=== PATIENT | female | born 1955 | race Caucasian/White ===

== ENCOUNTER 2016-07-06 21:01 | Emergency (ER) | payer BC ==
[~2016-07-06] VITALS: Ht 170.2 cm; Wt 82.4 kg
[~2016-07-06 21:01] MED LIST: ALBUAER19 INH; ASPI81TA21 PO; ATEN-173 PO; CALCIUM,MAG,ZINC PO; CHOL100027 PO; CRANPOW PO; FLNIN NAE; MULT-506 PO; OMEG10007 PO; PANT40TA PO; VITBC PO
[2016-07-06 21:07] VITALS: TEMP 36.8; Ht 170.2 cm; Wt 82.4 kg
[2016-07-06] MEDS ORDERED: CZR50 PO (21:23)
[2016-07-06] MEDS ORDERED: CHLO1TAB47 PO (21:23)
[2016-07-06] MEDS ORDERED: SNG10 PO (21:23)
[2016-07-06] MEDS ORDERED: RANI150T2 PO (21:23)
[2016-07-06] MEDS ORDERED: SODIUM CHLORIDE 0.9% 1000ML 1,000 ML IV STA (21:55)
[2016-07-06] MEDS ORDERED: GI COCKTAIL PO ONE (22:00)
[2016-07-06] MEDS ORDERED: LIDOCAINE HCL 2% VISC SOLN 20 ML UDC ONE (22:06)
[2016-07-06] MEDS ORDERED: ALUMINUM/MAGNESIUM SUSP 30 ML UDC ONE (22:06)
--- NOTE | 2016-07-06 22:10 | EMERGENCY ROOM VISIT NOTE ---
History First contact with patient: 21:36 Chief Complaint: SHORTNESS OF BREATH Stated Complaint: SOB,COUGH,HEAD CONGESTION Nursing Triage Summary: Patient reports that she has had sinus pain and congestion since last Saturday. Patient was seen by PCP and told to wait atleast 7-10 days. Patient asked if she is feeling SOB, she states "I don't know. I just feel like sometimes I can't get a deep breath." History of Present Illness The patient is a 60 year old female who presents to the Emergency Department by private vehicle for evaluation of her cough, nasal congestion, gastritis, and shortness of breath. She reports that 2 weeks ago she had the "stomach bug" with associated vomiting. The symptoms had subsided and she followed up with her primary care provider for persistent complaints of upper abdominal discomfort. She was placed on Zantac twice daily. This was earlier this week. Shortly after the visit she developed nasal congestion and jaw as well as pain to the back of head. The symptoms have persisted. She contacted her primary care provider's office and asked for an antibiotic. They did not feel was necessary at this point. She's had persistent symptoms which has now progressed to a cough as well as shortness of breath at rest. She also complains of tingling in the bilateral hands as well as face when she has the sensation of not being able to breathe secondary to nasal congestion. The patient complains of minimal discomfort rating her pain a 1/10. She denies any fevers, chills, dizziness, lightheadedness, blurry vision, double vision, slurred speech, facial droop, unilateral weakness/numbness, neck stiffness, palpitations, hemoptysis, or abdominal pain. She denies any recent long distance travel, family history of blood clots/bleeding disorders, use of exogenous female hormone, or smoking history. 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 She does not take antibiotics prophylactically for infections. Review of Systems A complete 10-point Review of Systems was discussed with the patient, with pertinent positives and negatives listed in the History of Present Illness. All remaining Review of Systems questions can be considered negative unless otherwise specified. 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 (3) Hypertension Surgical Problems: (1) History of abdominal surgery (2) History of tonsillectomy Family History FH: COPD (chronic obstructive pulmonary disease) FH: HTN (hypertension) FH: cancer FH: seizures Kidney stones Social History Smoking Status: Never Smoker Smokeless Tobacco Use: No Alcohol Use: none Drug Use: none Marital Status: Occupation Status: employed Current/Historical Medications Scheduled Amoxicillin (Amoxil), 500 MG PO TID Aspirin Enteric Coated (Ecotrin Or Generic), 81 MG PO DAILY Chlorpheniramine-Phenylephrine (Brandee-[place] Plus Cold), 2 TAB PO DIRECTED Cholecalciferol (Vitamin D 1000 Unit), 1,000 INTER.UNIT PO DAILY Fish Oil ([place]-3), 1 CAP PO DAILY Losartan Potassium (Losartan Potassium), 50 MG PO QAM Montelukast Sod (Montelukast Sodium), 10 MG PO QPM Multivitamin (Multivitamin), 1 TAB PO DAILY Ranitidine HCl (Ranitidine HCl), 150 MG PO BID Vitamin B Complex (Vitamin B Complex), 1 TAB PO DAILY Scheduled PRN Albuterol Inhaler (Ventolin Inhaler), 2 PUFFS INH QID PRN for CONGESTION Allergies Coded Allergies: Gabapentin (Verified Adverse Reaction, Mild, FEELS HIGH, 07/06/16) Prednisone (Verified Adverse Reaction, Mild, FEELS HIGH, 07/06/16) Pregabalin (Verified Adverse Reaction, Mild, FEELS HIGH, 07/06/16) Sulfa Drugs (Verified Adverse Reaction, Mild, UPSET STOMACH, 07/06/16) Sulfamethoxazole (Verified Adverse Reaction, Mild, UPSET STOMACH, 07/06/16) Trimethoprim (Verified Adverse Reaction, Mild, UPSET STOMACH, 07/06/16) Physical Exam Vital Signs Date Time Temp Pulse Resp B/P Pulse Ox O2 Delivery O2 Flow Rate FiO2 07/07/16 00:13 77 20 172/74 98 07/06/16 22:48 100 Room Air 07/06/16 22:41 62 07/06/16 22:37 62 12 180/87 100 Room Air 07/06/16 21:29 Room Air 07/06/16 21:07 36.8 77 20 192/95 97 Room Air Pain Rating (0-10): 1 Physical Exam VITAL SIGNS - Vital signs and nursing notes were reviewed. GENERAL - Well nourished, well developed 60-year-old female in no acute distress. Pt communicates well with provider and answers questions appropriately. SKIN - Without rash. HEAD - NC/AT with no obvious deformities. EYES - PERRL with EOMI bilaterally. Sclera without injection. Palpebral conjunctiva pink and moist. EARS - No deformities of external structures noted on gross examination bilaterally. No pain elicited with palpation of the tragus bilaterally. External auditory canals without discharge or otorrhea. Tympanic membranes pearly [place] without retraction or bulging. No fluid or purulent material visualized behind the TM. Handle of malleus, umbo, cone of light, pars tensa/ flaccid all easily visualized. NOSE - Midline and without cyanosis. No purulent drainage noted. Nasal mucosa with mucus discharge. TTP to the RIGHT sided maxillary sinus. MOUTH/OROPHARYNX - Without perioral cyanosis. Buccal mucosa pink and moist and without leukoplakia. Tongue midline with equal elevation of palate bilaterally. No tonsillar hypertrophy, erythema, or exudates noted. Good dentition noted. NECK - Neck with FROM. Supple to palpation. No lymphadenopathy noted. No nuchal rigidity. LUNGS - Chest wall symmetric without accessory muscle use, intercostals retractions, or central cyanosis. Normal vesicular breath sounds CTA B/L. No wheezes, rales, or rhonchi appreciated. CARDIAC - RRR with S1/S2. No murmur, rubs, or gallops appreciated. ABDOMEN - Abdominal contour flat without pulsations or visible masses. BS normoactive all four quadrants. No tenderness, palpable masses, hepatosplenomegaly, or ascites noted. Medical Decision & Procedures ER Provider Diagnostic Interpretation: Radiological imaging and reports were reviewed by myself. Radiologist's Interpretation as follows: CHEST ONE VIEW PORTABLE CLINICAL HISTORY: cough dyspnea COMPARISON STUDY: 03/23/2014 FINDINGS: The bones soft tissues and hemidiaphragms are normal. The cardiomediastinal silhouette is normal. The lungs are clear. The pulmonary vasculature is normal. IMPRESSION: Negative chest. Laboratory Results 07/06/16 22:27 Red Blood Count 4.45, Mean Corpuscular Volume 90.3, Mean Corpuscular Hemoglobin 31.2, Mean Corpuscular Hemoglobin Concent 34.6, Mean Platelet Volume 10.7, Neutrophils (%) (Auto) 43.2, Lymphocytes (%) (Auto) 35.9, Monocytes (%) (Auto) 12.4, Eosinophils (%) (Auto) 7.8, Basophils (%) (Auto) 0.5, Neutrophils # (Auto ) 4.41, Lymphocytes # (Auto) 3.67, Monocytes # (Auto) 1.27, Eosinophils # (Auto ) 0.80, Basophils # (Auto) 0.05 07/06/16 22:27 Test 07/06/16 00:00 07/06/16 22:27 07/06/16 22:59 Influenza Type A Antigen Neg for Influ A (NEG) Influenza Type B Antigen Neg for Influ B (NEG) White Blood Count 10.22 K/uL (4.8-10.8) Red Blood Count 4.45 M/uL (4.2-5.4) Hemoglobin 13.9 g/dL (12.0-16.0) Hematocrit 40.2 % (37-47) Mean Corpuscular Volume 90.3 fL (80-100) Mean Corpuscular Hemoglobin 31.2 pg (25-34) Mean Corpuscular Hemoglobin Concent 34.6 g/dl (32-36) Platelet Count 340 K/uL (130-400) Mean Platelet Volume 10.7 fL (7.4-10.4) Neutrophils (%) (Auto) 43.2 % Lymphocytes (%) (Auto) 35.9 % Monocytes (%) (Auto) 12.4 % Eosinophils (%) (Auto) 7.8 % Basophils (%) (Auto) 0.5 % Neutrophils # (Auto) 4.41 K/uL (1.4-6.5) Lymphocytes # (Auto) 3.67 K/uL (1.2-3.4) Monocytes # (Auto) 1.27 K/uL (0.11-0.59) Eosinophils # (Auto) 0.80 K/uL (0-0.5) Basophils # (Auto) 0.05 K/uL (0-0.2) RDW Standard Deviation 45.8 fL (36.4-46.3) RDW Coefficient of Variation 13.9 % (11.5-14.5) Immature Granulocyte % (Auto) 0.2 % Immature Granulocyte # (Auto) 0.02 K/uL (0.00-0.02) Prothrombin Time 10.0 SECONDS (9.0-12.0) Prothromb Time International Ratio 0.9 (0.9-1.1) Activated Partial Thromboplast Time 26.3 SECONDS (21.0-31.0) Partial Thromboplastin Ratio 1.0 Anion Gap 8.0 mmol/L (3-11) Est Creatinine Clear Calc Drug Dose 92.0 ml/min Estimated GFR () 107.6 Estimated GFR (Non- 92.9 BUN/Creatinine Ratio 20.0 (10-20) Calcium Level 9.1 mg/dl (8.5-10.1) Magnesium Level 2.2 mg/dl (1.8-2.4) Total Bilirubin 0.2 mg/dl (0.2-1) Aspartate Amino Transf (AST/SGOT) 28 U/L (15-37) Alanine Aminotransferase (ALT/SGPT) 37 U/L (12-78) Alkaline Phosphatase 82 U/L (45-117) Total Creatine Kinase 69 U/L (26-192) Creatine Kinase MB 1.1 ng/ml (0.5-3.6) Creatine Kinase MB Ratio 1.6 (0-3.0) Total Protein 7.8 gm/dl (6.4-8.2) Albumin 3.7 gm/dl (3.4-5.0) Globulin 4.1 gm/dl (2.5-4.0) Albumin/Globulin Ratio 0.9 (0.9-2) Lipase 195 U/L (73-393) Bedside Troponin I 0.000 ng/ml (0-0.045) Medications Administered Medications (Trade) Dose Ordered Sig/Andie Route Start Time Stop Time Status Last Admin Dose Admin Sodium Chloride (Nss 1000ml) 1,000 ml @ 200 mls/hr Q5H STAT IV 07/06/16 21:55 07/07/16 00:51 DC 07/06/16 22:29 200 MLS/HR Lidocaine HCl (Viscous Lidocaine 2% Soln) 20 ml STK-MED ONCE .ROUTE 07/06/16 22:06 07/06/16 22:09 DC 07/06/16 22:31 20 ML Al Hydroxide/Mg Hydroxide (Maalox Susp) 30 ml STK-MED ONCE .ROUTE 07/06/16 22:06 07/06/16 22:09 DC 07/06/16 22:31 30 ML Albuterol/ Ipratropium (Duoneb) 3 ml STK-MED ONCE .ROUTE 07/06/16 22:24 07/06/16 22:27 DC 07/06/16 22:32 3 ML Amoxicillin (Amoxil Cap) 500 mg NOW STAT PO 07/06/16 23:35 07/06/16 23:37 DC 07/06/16 23:52 500 MG Amoxicillin (Amoxil 250MG Home Pack) 1 homepack UD ONCE PO 07/06/16 23:45 07/06/16 23:46 DC 07/06/16 23:52 1 HOMEPACK Albuterol (Ventolin Hfa Inhaler) 2 puffs ONE STAT INH 07/06/16 23:35 07/06/16 23:37 DC 07/06/16 23:52 2 PUFFS Procedure Patient was placed on the compliance monitor and monitored throughout the entire extent of their stay. In addition, the patient's pulse oximetry was monitored throughout the entire stay. Any abnormalities or aberrancies were addressed appropriately. ECG Indication: SOB/dyspnea Rate (beats per minute): 63 Rhythm: normal sinus Findings: no acute ischemic change, no ectopy Change: no significant change (from 03/23/2014.) ED Course Patient was seen and evaluated by myself. Labs were drawn, saline lock in place. The patient was hydrated with normal saline at a rate of 200 mL per hour. EKG and chest x-rays were obtained. The patient was treated with GI cocktail and a DuoNeb treatment. Laboratory results demonstrate no acute leukocytosis, worrisome anemia, or bandemia. The patient has no significant electrolyte abnormalities. Cardiac enzymes are negative. Troponin is negative. Laboratory results and imaging studies were reviewed with the patient who acknowledges understanding. The patient received amoxicillin for her sinusitis. The patient was educated on worrisome symptoms for return visit to the emergency department. Patient discharged home afebrile and in good condition. Medical Decision Given the patient's presentation and stated complaints, I did elect to perform the above-mentioned workup. The patient presents today with upper respiratory symptoms, nasal congestion, and subjective shortness of breath. She is not hypoxic. She is not tachypneic. She is not short of breath exertion. She reports shortness of breath secondary to nasal congestion. She was hydrated the emergency department. She felt better after GI cocktail and albuterol treatment. She was provided albuterol for home as well as amoxicillin. The patient will follow-up with her primary care provider from today's visit. I did cover the patient with amoxicillin given her history of asplenia. The patient was educated on worrisome symptoms for return visit to the emergency part. Patient discharged home afebrile and in good condition. In the evaluation and treatment of this patient, the following differential diagnoses were considered: ACS, AK, PE, pneumonia, globus hystericus, gastritis , gastroenteritis, duodenitis, venous sinus thrombosis, amongst others. Impression Primary Impression: Sinusitis Additional Impression: Shortness of breath Departure Information Dispostion Home / Self-Care Condition GOOD Prescriptions Amoxicillin (AMOXIL) 500 Mg Cap 500 MG PO TID for 10 Days, #30 CAP Prov: David Soto PA-C 07/07/16 Referrals Oneyda Walter D.O. (PCP) Patient Instructions ED Sinusitis Abx Tx, [facility] Additional Instructions You've been seen in the emergency department today for your sinusitis and ongoing upper respiratory symptoms. You were prescribed Amoxicillin to be taken as prescribed. This is an antibiotic. All antibiotics have the potential to cause diarrhea. Stop this medication and contact a medical provider if you were to develop any significant adverse side effects including: wheezing, shortness of breath, passing out, vomiting, or a diffuse rash. Always take antibiotics as directed and COMPLETE the ENTIRE course regardless of the improvement of your symptoms. Please utilize [id number] medications as discussed. For pain control, you can use the following [id number] medicines (if >12 yo): - Regular strength (325mg/tab) Tylenol (acetaminophen) 2 tabs every 4-6 hours as needed. Do not exceed 12 tablets in a 24 hour period. Avoid taking more than 4 grams (4000 mg) of Tylenol per day. This includes any other sources of acetaminophen you may take on a regular basis. - Regular strength (200 mg/tab) Advil (ibuprofen) 1-2 tabs every 4-6 hours as needed. Do not exceed a dose of 3200 mg per day. Follow-up with your primary care provider from today's visit. Return for any changing or worsening symptoms. Problem Qualifiers Primary Impression: Sinusitis Sinusitis location: maxillary Chronicity: acute Recurrence: not specified as recurrent Qualified Codes: J01.00 - Acute maxillary sinusitis, unspecified
[2016-07-06] MEDS ORDERED: ALBUT/IPRATROP 3MG/0.5MG NEB 3 ML VIAL ONE (22:24)
[2016-07-06 22:32] LABS: BASO % 0.5 %; BASO ABS # 0.05 K/uL (0-0.2); COMPLETE YES; EOS % 7.8 %; HEMATOCRIT 40.2 % (37-47); IG% 0.2 %; LYMPH % 35.9 %; LYMPH ABS # 3.67 K/uL (1.2-3.4); MEAN CELL VOLUME 90.3 fL (80-100); MEAN CORPUSCULAR HEMOGLOBIN 31.2 pg (25-34); MEAN CORPUSCULAR HGB CONC 34.6 g/dl (32-36); MEAN PLATELET VOLUME 10.7 fL (7.4-10.4); MONO % 12.4 %; NEUT % 43.2 %; PLATELET COUNT 340 K/uL (130-400); RED BLOOD COUNT 4.45 M/uL (4.2-5.4); WHITE BLOOD COUNT 10.22 K/uL (4.8-10.8)
--- NOTE | 2016-07-06 22:37 | DIAGNOSTIC IMAGING REPORT ---
CHEST ONE VIEW PORTABLE CLINICAL HISTORY: cough dyspnea COMPARISON STUDY: 03/23/2014 FINDINGS: The bones soft tissues and hemidiaphragms are normal. The cardiomediastinal silhouette is normal. The lungs are clear. The pulmonary vasculature is normal. IMPRESSION: Negative chest. Electronically signed by: Roly Carrizales M.D. 07/06/2016 10:35 PM Dictated Date/Time: 07/06/2016 10:35 PM
[2016-07-06 22:41] LABS: INR 0.9 (0.9-1.1)
[2016-07-06 22:47] LABS: CALCIUM 9.1 mg/dl (8.5-10.1); CREATININE 0.7 mg/dl (0.60-1.20); MAGNESIUM 2.2 mg/dl (1.8-2.4); POTASSIUM 3.4 mmol/L (3.5-5.1)
[2016-07-06 22:48] VITALS: O2SAT 100
[2016-07-06 22:52] LABS: ALB/GLOB RATIO 0.9 (0.9-2); CKMB/CK RATIO 1.6 (0-3.0)
[2016-07-06] MEDS ORDERED: AMOXICILLIN 250 MG CAP PO STA (23:35)
[2016-07-06] MEDS ORDERED: ALBUTEROL HFA 8 GM INHALER INH STA (23:35)
[2016-07-06] MEDS ORDERED: AMOXICILLIN HOME PACK 250 MG/TAB PO ONE (23:45)
[2016-07-07] MEDS ORDERED: ALBUT/IPRATROP 3MG/0.5MG NEB 3 ML VIAL INH SCH
[2016-07-07] MEDS ORDERED: AMOX500C3 PO (00:04)
[2016-07-07 00:13] VITALS: BP 172/74; PULSE 77; O2SAT 98
== END 2016-07-07 00:15 | disposition home or self-care (01) ==
LOC: C.EDB 21:02
DX: J01.00 Acute maxillary sinusitis, unspecified (principal); R06.02 Shortness of breath; I10 Essential (primary) hypertension; Z79.82 Long term (current) use of aspirin; Z79.899 Other long term (current) drug therapy

== ENCOUNTER → 2017-03-20 | Outpatient (CLI) | payer BC ==
[~2017-03-20] MED LIST changes: -ATEN-173 PO; -CALCIUM,MAG,ZINC PO; +CHLO1TAB47 PO; -CRANPOW PO; +CZR50 PO; -FLNIN NAE; -PANT40TA PO; +RANI150T2 PO; +SNG10 PO
== END | disposition home or self-care (01) ==
LOC: C.PAPS 14:14
PROVIDERS: ATTEND Obstetrics & Gynecology
DX: Z01.419 Encounter for gynecological examination (general) (routine) without abnormal findings (principal)

== ENCOUNTER 2017-07-03 06:59 | Emergency (ER) | payer BC, OTHER ==
[~2017-07-03] VITALS: Ht 170.2 cm; Wt 86.0 kg
[~2017-07-03 06:59] MED LIST changes: -CHLO1TAB47 PO; +CHLO1TAB50 PO; +OMEP20CA9 PO; +SUMA25TA12 PO
[2017-07-03 07:03] VITALS: TEMP 36.4; Ht 170.2 cm; Wt 86.0 kg
[2017-07-03] MEDS ORDERED: CZR25 PO (07:39)
[2017-07-03] MEDS ORDERED: AZEL30SP NAE (07:39)
[2017-07-03] MEDS ORDERED: VNTHFA/IN INH (07:39)
[2017-07-03 07:48] LABS: BASO % 0.6 %; BASO ABS # 0.05 K/uL (0-0.2); EOS % 5.4 %; EOS ABS # 0.45 K/uL (0-0.5); HEMATOCRIT 40.2 % (37-47); HEMOGLOBIN 13.9 g/dL (12.0-16.0); IG# 0.01 K/uL (0.00-0.02); LYMPH % 41.2 %; LYMPH ABS # 3.42 K/uL (1.2-3.4); MEAN CELL VOLUME 93.5 fL (80-100); MEAN CORPUSCULAR HEMOGLOBIN 32.3 pg (25-34); MEAN CORPUSCULAR HGB CONC 34.6 g/dl (32-36); MEAN PLATELET VOLUME 11.4 fL (7.4-10.4); MONO % 9.5 %; MONO ABS # 0.79 K/uL (0.11-0.59); NEUT % 43.2 %; NEUT ABS # 3.59 K/uL (1.4-6.5); PLATELET COUNT 293 K/uL (130-400); RED CELL DISTRIBUTION WIDTH CV 14.2 % (11.5-14.5); RED CELL DISTRIBUTION WIDTH SD 48.2 fL (36.4-46.3); WHITE BLOOD COUNT 8.31 K/uL (4.8-10.8)
[2017-07-03 07:57] LABS: PTT PATIENT 24.3 SECONDS (21.0-31.0)
[2017-07-03 08:05] LABS: ALBUMIN 3.6 gm/dl (3.4-5.0); CREATININE 0.74 mg/dl (0.60-1.20); POTASSIUM 3.5 mmol/L (3.5-5.1)
[2017-07-03 08:08] LABS: TOTAL PROTEIN 7.6 gm/dl (6.4-8.2)
--- NOTE | 2017-07-03 08:20 | EMERGENCY ROOM VISIT NOTE ---
History First contact with patient: 07:12 Chief Complaint: FACIAL PAIN/INJURY Stated Complaint: BLOOD VESSEL IN LEFT CHEEK History of Present Illness The patient is a 61 year old female who presents to the Emergency Room via private vehicle accompanied by male with complaints of "blood vessel and left cheek". The patient states that she woke this morning and while getting ready she felt/noticed a small bump on the left inner cheek. She looked at it was a small purple like bump and then 2 more develop. She states that this was concerning therefore prompting her visit. There is only minimal pain in this region. She denies any trauma or injury. There is no underlying coagulopathy that she is aware of. She denies any rashes. No other areas of bleeding. Review of Systems A complete 6-point Review of Systems was discussed with the patient, with pertinent positives and negatives listed in the History of Present Illness. All remaining Review of Systems questions can be considered negative unless otherwise specified. 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 (3) Hypertension Surgical Problems: (1) History of abdominal surgery (2) History of tonsillectomy Family History FH: COPD (chronic obstructive pulmonary disease) FH: HTN (hypertension) FH: cancer FH: seizures Kidney stones Social History Smoking Status: Former Smoker Alcohol Use: none Drug Use: none Marital Status: Occupation Status: employed Current/Historical Medications Scheduled Albuterol Hfa (Ventolin Hfa), 2-4 PUFFS INH Q6H Aspirin Enteric Coated (Ecotrin Or Generic), 81 MG PO DAILY Azelastine Hcl-Fluticasone Pro (Dymista), 1 SPRAY YOGI BID Chlorpheniramine-Phenylephrine (Brandee-[place] Plus Cold), 2 TAB PO DIRECTED Cholecalciferol (Vitamin D 1000 Unit), 1,000 INTER.UNIT PO DAILY Fish Oil ([place]-3), 1 CAP PO Q2D Losartan Potassium (Losartan Potassium), 50 MG PO QAM Losartan Potassium (Losartan Potassium), 1 TAB PO DAILY Multivitamin (Multivitamin), 1 TAB PO DAILY Omeprazole (Prilosec), 1 CAP PO DAILYBB Ranitidine HCl (Ranitidine HCl), 150 MG PO BID Vitamin B Complex (Vitamin B Complex), 1 TAB PO DAILY Scheduled PRN Sumatriptan Succinate (Imitrex), 1 TAB PO UD PRN for Migraine Physical Exam Vital Signs Date Time Temp Pulse Resp B/P (MAP) Pulse Ox O2 Delivery O2 Flow Rate FiO2 07/03/17 07:03 36.4 65 17 183/85 97 Room Air Physical Exam VITAL SIGNS - Vital signs and nursing notes were reviewed. Stable. Hypertensive. GENERAL -61-year-old female appearing her stated age who is in no acute distress. Communicates well with provider and answers questions appropriately. SKIN - Without rashes. No petechial rashes. No other bulla noted. HEAD - NC/AT. EYES - PERRL with EOMI bilaterally. Sclera anicteric. No hyphema. No submental hemorrhage. EARS - No deformities of external structures noted on gross examination bilaterally. No hemotympanum. NOSE - Midline and without cyanosis. No epistaxis or purulent drainage noted. MOUTH/OROPHARYNX - Without perioral cyanosis. Buccal mucosa pink and moist and without leukoplakia. On the left inner cheek at the region midway between the upper and lower teeth there are 3 small bulla that are purple in nature. Consistent with hemorrhagic bulla. No petechiae or pharyngeal involvement. These are supple centimeter in size and oval in characterization. Medical Decision & Procedures Laboratory Results 07/03/17 07:33 Red Blood Count 4.30, Mean Corpuscular Volume 93.5, Mean Corpuscular Hemoglobin 32.3, Mean Corpuscular Hemoglobin Concent 34.6, Mean Platelet Volume 11.4, Neutrophils (%) (Auto) 43.2, Lymphocytes (%) (Auto) 41.2, Monocytes (%) (Auto) 9.5, Eosinophils (%) (Auto) 5.4, Basophils (%) (Auto) 0.6, Neutrophils # (Auto) 3.59, Lymphocytes # (Auto) 3.42, Monocytes # (Auto) 0.79, Eosinophils # (Auto) 0.45, Basophils # (Auto) 0.05 07/03/17 07:33 Test 07/03/17 07:33 White Blood Count 8.31 K/uL (4.8-10.8) Red Blood Count 4.30 M/uL (4.2-5.4) Hemoglobin 13.9 g/dL (12.0-16.0) Hematocrit 40.2 % (37-47) Mean Corpuscular Volume 93.5 fL (80-100) Mean Corpuscular Hemoglobin 32.3 pg (25-34) Mean Corpuscular Hemoglobin Concent 34.6 g/dl (32-36) Platelet Count 293 K/uL (130-400) Mean Platelet Volume 11.4 fL (7.4-10.4) Neutrophils (%) (Auto) 43.2 % Lymphocytes (%) (Auto) 41.2 % Monocytes (%) (Auto) 9.5 % Eosinophils (%) (Auto) 5.4 % Basophils (%) (Auto) 0.6 % Neutrophils # (Auto) 3.59 K/uL (1.4-6.5) Lymphocytes # (Auto) 3.42 K/uL (1.2-3.4) Monocytes # (Auto) 0.79 K/uL (0.11-0.59) Eosinophils # (Auto) 0.45 K/uL (0-0.5) Basophils # (Auto) 0.05 K/uL (0-0.2) RDW Standard Deviation 48.2 fL (36.4-46.3) RDW Coefficient of Variation 14.2 % (11.5-14.5) Immature Granulocyte % (Auto) 0.1 % Immature Granulocyte # (Auto) 0.01 K/uL (0.00-0.02) Prothrombin Time 10.0 SECONDS (9.0-12.0) Prothromb Time International Ratio 1.0 (0.9-1.1) Activated Partial Thromboplast Time 24.3 SECONDS (21.0-31.0) Partial Thromboplastin Ratio 0.9 Anion Gap 6.0 mmol/L (3-11) Est Creatinine Clear Calc Drug Dose 87.7 ml/min Estimated GFR () 99.9 Estimated GFR (Non- 86.2 BUN/Creatinine Ratio 24.4 (10-20) Calcium Level 9.0 mg/dl (8.5-10.1) Total Bilirubin 0.6 mg/dl (0.2-1) Aspartate Amino Transf (AST/SGOT) 20 U/L (15-37) Alanine Aminotransferase (ALT/SGPT) 35 U/L (12-78) Alkaline Phosphatase 90 U/L (45-117) Total Protein 7.6 gm/dl (6.4-8.2) Albumin 3.6 gm/dl (3.4-5.0) Globulin 4.0 gm/dl (2.5-4.0) Albumin/Globulin Ratio 0.9 (0.9-2) Medical Decision Patient was seen and evaluated as above. She presents to us today with 3 bullae in her mouth which are suspect to be hemorrhagic bulla. In review of her recent blood work, it appears that she has not had any recently, therefore I felt it pertinent to check her platelet count, hemoglobin status as well as coags. She does not take blood thinners. There is no other areas of bleeding. Initial concern is that over the more emergent processes such as mucous membrane pemphigoid, epidermolysis bullosa, linear IgA, dermatitis herpetiformis , as well as TTP/ ITP. IV access was initiated, and the above workup was performed. There is no consistent and leukocytosis or anemia. Coags normal. Patient metabolic panel reveals no evidence of kidney or liver failure. Specifically, her platelet count is appropriate. Upon reassessment the bullae disappeared number left with a small discoloration of the mouth without bleeding. I do believe she is stable from patient management, and did discuss the case with the attending physician. She is to call her family doctor to schedule follow-up or return with worsening. She was educated upon management, educated upon worrisome symptoms in which to return, had questions answered prior to discharge, and was discharged home in good condition. In evaluation treatment this patient the following differential diagnoses were entertained: mucous membrane pemphigoid, epidermolysis bullosa, linear IgA, dermatitis herpetiformis, as well as TTP/ ITP and trauma, among others. Impression Primary Impression: blood blisters in mouth Departure Information Dispostion Home / Self-Care Condition GOOD Referrals Oneyda Walter D.O. (PCP) Patient Instructions [facility] Additional Instructions You were seen in the emergency department for blood blisters in your mouth. I suspect you are likely experiencing Angina bullosa hemorrhagica,which is a nonthreatening cause of bleeding in the mouth causing the blood blisters. As we discussed though however there could be other underlying causes of which I recommend following up with your family doctor for. If these return or worsen please return here to the emergency department. Also if you develop a rash, please come back. Please return with any new/concerning symptoms.
[2017-07-03 08:32] VITALS: BP 167/78; PULSE 90; O2SAT 98
== END 2017-07-03 08:34 | disposition home or self-care (01) ==
LOC: C.EDB 07:01 → C.EDA 08:34
DX: S00.522A Blister (nonthermal) of oral cavity, initial encounter (principal); X58.XXXA Exposure to other specified factors, initial encounter; K31.84 Gastroparesis; I10 Essential (primary) hypertension; Z87.891 Personal history of nicotine dependence; Z90.81 Acquired absence of spleen; Z79.82 Long term (current) use of aspirin; Z82.49 Family history of ischemic heart disease and other diseases of the circulatory system; Z83.6 Family history of other diseases of the respiratory system; Z84.1 Family history of disorders of kidney and ureter